=== PATIENT | female | born 1945 | race Caucasian/White ===

== ENCOUNTER 2019-04-17 06:14 | Day surgery (SDC) | payer OTHER ==
[2019-04-14 15:12] LABS: Urine Appearance CLEAR; Urine Bilirubin NEGATIVE (NEG); Urine Blood NEGATIVE (NEG); Urine Color YELLOW; Urine Glucose NEGATIVE (NEG); Urine Protein NEGATIVE (NEG); Urine Urobilinogen 0.2 mg/dL (0.2-1.0)
[2019-04-14 15:19] LABS: Urine Microscopic Reflex NO UMIC
[2019-04-14 15:22] LABS: Absolute Lymphocytes (CBC) 2.3 K/uL (0.7-4.9); Basophils % 0.5 % (0-1.3); MPV 9.1 fL (7.6-11.3); RBC Red Blood Cell Count 4.73 M/uL (3.86-4.86)
[2019-04-14 15:23] LABS: Protime INR 0.99
[2019-04-14 15:25] LABS: Potassium 3.5 mmol/L (3.5-5.1)
[2019-04-17] MEDS ORDERED: CEFAZOLIN/SWI 2gm 2 GM/20 ML SYR ONE (06:20)
[2019-04-17] MEDS ORDERED: Ringers Lactate 1,000 ML IV ONE ×3 (06:20→13:10)
[2019-04-17] MEDS ORDERED: propofoL 200 MG/20 ML VIAL IV ONE (07:01)
[2019-04-17] MEDS ORDERED: ROCURONIUM 50 MG/5 ML VIAL IV ONE ×2 (07:03→09:06)
[2019-04-17] MEDS ORDERED: LIDOCAINE 2% MPF 5 ML VIAL ONE (07:04)
[2019-04-17] MEDS ORDERED: FENTANYL CITR 250 MCG/5 ML ONE ×2 (07:04→09:30)
[2019-04-17] MEDS ORDERED: ONDANSETRON 4 MG/2 ML VIAL ONE ×2 (07:09→09:29)
[2019-04-17] MEDS ORDERED: VASOPRESSIN 20 UNIT/ML VIAL ONE (07:13)
[2019-04-17] MEDS ORDERED: CEFAZOLIN/SWI 1gm 1 GM/10 ML SYR ONE (07:13)
[2019-04-17] MEDS ORDERED: NA CHLORIDE 0.9% 100 ML IV ONE (07:13)
[2019-04-17] MEDS ORDERED: FAMOTIDINE 20 MG/2 ML VIAL IV ONE (07:33)
[2019-04-17] MEDS ORDERED: GLYCOPYRROLATE 0.2 MG/ML SYR ONE (09:26)
[2019-04-17] MEDS ORDERED: NEOSTIGMINE 1 MG/ML -5 ML ONE (09:29)
[2019-04-17] MEDS ORDERED: METHYLENE BLUE 0.5% 10 ML AMP ONE (11:25)
[2019-04-17] MEDS ORDERED: MORPHINE 10 MG/ML VIAL ONE (11:43)
[2019-04-17] MEDS ORDERED: EPHEDRINE SULF 50 MG/ML VIAL ONE (12:26)
[2019-04-17] MEDS ORDERED: PROMETHAZINE INJ 25 MG/ML AMP ONE (13:02)
[2019-04-17] MEDS ORDERED: ONDANSETRON 4 MG/2 ML VIAL IV PRN (13:14)
[2019-04-17] MEDS ORDERED: ACETAMINOPHEN 500 MG TAB PO PRN (13:14)
[2019-04-17] MEDS ORDERED: MORPHINE 4 MG/ML SYR IV PRN (13:14)
[2019-04-17] MEDS ORDERED: PROMETHAZINE INJ 25 MG/ML AMP IV PRN (13:14)
[2019-04-17 13:22] VITALS: O2SAT 100
--- NOTE | 2019-04-17 13:23 | P.BOP ---
Preoperative diagnosis: incomplete uterovag prolapse stage 3, post defect and SUSSY Postoperative diagnosis: same Primary procedure: ant/ post repairs/bilat SSLF colpopexy with biologic graft Secondary procedure: MUS T-O/ cystoscopy, perineorrhaphy Credit Risk Analyst: Chelsea Hancock Estimated blood loss: 150 Specimen: none Anesthesia: General Complications: None Drain(s): Urinary catheter Implants: TVT-O, Dermapure Transferred to: Recovery Room Condition: Good
[2019-04-17 15:42] VITALS: BMI 31.5
[2019-04-17] MEDS ORDERED: FAMOTIDINE 20 MG TAB PO SCH (21:00)
[2019-04-17] MEDS: Ringers Lactate 1,000 ML IV SCH (21:29)
--- NOTE | 2019-04-18 03:04 | OP ---
Date of Procedure: 04/17/2019 Surgeon: Tori Reyes MD [employer] Teacher: Chelsea Neal. Preoperative Diagnoses: Stage II incomplete uterovaginal prolapse, anterior wall prolapse is the mos t significant defect for the patient, stage I posterior wall defect, stress urinary incontinence and overactive bladder. Postoperative Diagnoses: Stage II incomplete uterovaginal prolapse, anterior wall prolapse is the mo st significant defect for the patient, stage I posterior wall defect, stress urinary incontinence and overactive bladder. Procedures Performed: 1.Anterior and posterior repairs. 2.Anterior repair with graft augmentation with DermaPure biological graft. 3.Bilateral sacrospinous ligament fixation, colpopexy. 4.Perineorrhaphy. 5.Mid urethral sling and cystoscopy. Anesthesia: General endotracheal anesthesia. Estimated Blood Loss: 150. Urine Output: 300. Specimens: No specimens. Complications: No complications. Drains: Burnham catheter and vaginal packing. Graft Used: TVT-O and DermaPure. Findings: The patient's POP-Q +1, +2, -2, 5, moderate, 7, -2, -2, and -3. Brief History And Physical: Patient is a 73-year-old who had a vaginal bulge and who had originally seen me for increasing bulge symptoms for the past few years. She has been a patient of Dr. Mcclelland, who is a urologist in [facility] for recurrent urinary tract infections and overactive bladder. Her sympto ms have gotten worse with time. Also, complaining of increasing overactive bladder symptoms and bulg e symptoms have gotten much worse and she has not felt comfortable to have intercourse despite no dys pareunia after the bulge has gotten to a significant size. I have discussed with her on examination her POP-Q is very similar to above. We have discussed with her the options about the pessary managem ent and Kegel's exercise and surgical options. After considering everything, patient wanted to obser ve and perform Kegel's exercises declined having any formal physical therapy. Completely decline wan ting to try a pessary. After significant consideration of her she was given the option th at she wanted to proceed with the surgery and so we have given her options about the laparoscopic hys terectomy and sacral colpopexy with a sling and posterior repair versus entire vaginal repair where u terus can be preserved during an anterior repair with biological graft augmentation and the sling in posterior repair. The patient understood the differences between the surgeries, the efficacies, side effects including recurrence rates. The patient wanted to proceed with a biological graft augmentat ion with uterine preservation. The worst thing that she did not want to have was a hysterectomy or a n abdominal approach despite the laparoscopy. So I counseled her on this, anterior repair with graft augmentation, bilateral sacrospinous fixation, posterior repair as needed and perineorrhaphy with a sling. Urodynamics were done. She has been given prophylaxis with antibiotics and she had some diff iculty with antibiotics, which were stopped and her urine dip was negative prior to the surgery for a n infection and I proceeded to bring her to the OR. Description Of Procedure: After informed consent was verified, she was taken back to OR, 2 g of Ance f were given. She tolerated this well despite her penicillin and clindamycin allergy. She was place d in a supine fashion, general anesthesia given, placed in a dorsal lithotomy position using Alonzo st irrups. Vulva, vagina, lower abdomen, and perineum were all prepped and draped in a sterile fashion. Burnham placed to drain the bladder and then clamped and retracted superiorly. The anterior compartm ent was then measured and just below the level of the urethrovesical junction, which is proximal to i t, the clamp was placed and then right on the cervix just above the level of the cervix. In the midl ine, dilute vasopressin was injected. The length of this segment was about 4-5 cm, so plan was to op en this up and then use a biological graft augmented repair. Incision with a 15 blade, the bladder was taken down on both sides. Paravaginal spaces were entered. Ischial spine was palpated. The sacrospinous ligament was cleaned up on both sides. Then Capio de vice was used, the bladder was taken down and exposed the precervical fascia, the paracervical ring i n the proximal part. In the distal part, the small segment of the anterior vaginal wall, arcus tendi neus fascia was still present here as a band just proximal to the urethrovesical junction. So, this was dissected and opened up. The plan was to get the distal attachment of the graft to adhere and th en the biological graft was taken 10 cm from spine to spine and a 1 cm was cut out from the graft to the center to create a curve for the cervix. Three PDS sutures were placed on the cervix in the cent er and on both sides and fixed to the biologic graft at its proximal end in the center, then 2 Prolen e sutures placed on the sacrospinous ligament 2 cm medial and posterior to the ischial spine cleaning away the rectum. Once the sutures were placed, these were tacked down to the graft with a charis st itches, then 1.5 cm or 2 cm away from the ischial spine medially and anterior and lateral to the isch ial spine on the white line Capio bites were taken with PDS sutures and these were then tacked on dis delores to the sacrospinous sutures to the graft. Once all the sutures were tagged onto the graft, the c enter sutures were tied, then the sacrospinous sutures were tied, then the PDS sutures were tied prox imally. In the center, the bladder was reduced with the help of a 3-0 Monocryl in a pursestring fash ion and then a Irish stitch was placed with a 2-0 Vicryl from [id number]. Then, the distal part of the graft was attached with 3 PDS sutures to the fascia as exposed. There was excellent support in the anterior-posterior direction and in the lateral direction as well. Then, the vaginal epithelium was trimmed appropriately and closed with the help of a continuous running 2-0 Vicryl in a locked fas hion. Sling was done without any problems, mid urethral area was picked up with 2 Allis clamps, injected wi th dilute vasopressin on each side at a 45-degree angle with the high lithotomy just for this part of the case, which took about 25 minutes. Incision was made towards the ipsilateral obturator space hu gging the inferior pubic ramus. Once the space was opened up on one side and onto other, then the wi ng guide was placed, TVT-O was opened up and the spike was passed hugging the inferior pubic ramus ex iting 2 cm lateral to the groin fold about 1-2 cm superior to the horizontal line dropped at the leve l of the external meatus. Once the plastic sheath was retrieved, spike was removed from both sides t his was passed, then the sling was tensioned with the help of Metzenbaum in the center and then sheat hs pulled out, then incision closed with the help of continuous running 3-0 Vicryl continuous in a lo cked fashion. Then, the exit points sealed with Dermabond. Posterior repair was done after injecting with dilute vasopressin and picking up the 2 edges of the s eparated hymen, then there was scar in the posterior 1/3rd. A vaughn-shaped incision was made with the scalpel and then the vaginal epithelium was excised. Then, the rectovaginal septum was dissected down laterally. There was a defect in the center here when the rectovaginal exam was performed. So the edges of the rectovaginal septum were brought together with a 2-0 PDS in a continuous running fa shion. Once this was done, the separate parts of the deep transverse perineum were brought together with the same PDS suture and this was run back in and a knot placed there. Then, the vaginal epithel ium was trimmed appropriately and closure was performed with a continuous running 2-0 Vicryl in a hor izontal mattress fashion and then the perineorrhaphy was performed with the same stitch. Cystoscopy was performed after the sling and there were strong jets of urine from both ureteric orifi yohannes. Methylene blue was given for this patient. Then, the bladder was drained and Burnham catheter wa s replaced and then after the posterior repair was done, rectal exam was performed. No evidence of a ny sutures or trauma to the rectum. Gloves were changed. Vagina was packed. The patient was recove red from anesthesia. Burnham was left in place. Instrument, needle, and sponge counts x3 were correct at the end of the case. The patient tolerated the procedure well. She will be recovering on our [facility] Floor and discharged tomorrow after a voiding trial and there is a followup postop appoint ment in 1 week. SAMI/EBEN Voice ID: [id number] Report ID: [id number]
[2019-04-18] MEDS: Ringers Lactate 1,000 ML IV SCH (05:05)
[2019-04-18 05:08] VITALS: BP 117/60; TEMP 98.3
[2019-04-18 06:10] LABS: Absolute Lymphocytes (CBC) 1.4 K/uL (0.7-4.9); Basophils % 0.5 % (0-1.3); Hematocrit 33.6 % (36.0-45.0); Lymphocytes % 11.2 % (15.3-44.8); MPV 8.5 fL (7.6-11.3); RBC Red Blood Cell Count 3.92 M/uL (3.86-4.86)
== END 2019-04-18 11:00 | disposition home or self-care (01) ==
LOC: OR 06:14 → 2ND-WC 14:09 → OR 04-18 11:00
PROVIDERS: ATTEND Obstetrics & Gynecology
PROC: 0JQC0ZZ Repair Pelvic Region Subcutaneous Tissue and Fascia, Open Approach (ICD-10-PCS; 2019-04-17)
PROC: 0WQNXZZ Repair Female Perineum, External Approach (ICD-10-PCS; 2019-04-17)
PROC: 0USG7ZZ Reposition Vagina, Via Natural or Artificial Opening (ICD-10-PCS; 2019-04-17)
PROC: 0TSD0ZZ Reposition Urethra, Open Approach (ICD-10-PCS; 2019-04-17)
PROC: 0JUC0JZ Supplement of Pelvic Region Subcutaneous Tissue and Fascia with Synthetic Substitute, Open Approach (ICD-10-PCS; principal; 2019-04-17 07:30)
DX: N81.2 Incomplete uterovaginal prolapse (principal); N39.3 Stress incontinence (female) (male); N32.81 Overactive bladder; Z88.0 Allergy status to penicillin; Z88.3 Allergy status to other anti-infective agents; Z90.49 Acquired absence of other specified parts of digestive tract; Z80.3 Family history of malignant neoplasm of breast
CPT/HCPCS: 85025 ×2; 80048; 36415 ×2; 86900; 86850; 85610; 86901; 85730; 81003; 57260; 57267; 57282; 57288; J2704; J2550; J3010 ×2; J2710; J0690 ×2; J7120 ×5; J2405 ×2